=== PATIENT | female | born 1965 | race Caucasian/White ===

== ENCOUNTER 2016-09-07 20:06 | Emergency (ER) | payer OTHER ==
[~2016-09-07] VITALS: Ht 152.4 cm; Wt 68.2 kg
[~2016-09-07 20:06] MED LIST: DIVA500T35 PO; RISP3 PO
[2016-09-07] MEDS ORDERED: LORA-192 PO (20:18)
[2016-09-07] MEDS ORDERED: LITH600C PO (20:18)
[2016-09-07] MEDS ORDERED: CLON2TAB4 PO (20:18)
[2016-09-07] MEDS ORDERED: QUET400T12 PO (20:18)
[2016-09-07] MEDS ORDERED: HALOPERIDOL 5 MG TABLET PO PRN (22:15)
[2016-09-07] MEDS ORDERED: ZOLPIDEM TARTRATE 10 MG TABLET PO PRN (22:15)
[2016-09-07] MEDS: LORazepam 2 MG TABLET PO PRN (23:40)
[2016-09-08] MEDS ORDERED: DiphenhydrAMINE HCL 50 MG/ML VIAL IM ONE (02:30)
[2016-09-08] MEDS ORDERED: LORazepam 2 MG/ML VIAL IM ONE (02:30)
[2016-09-08] MEDS ORDERED: HALOPERIDOL LACTATE 5 MG/ML VIAL IM ONE (02:30)
[2016-09-08 04:57] LABS: BASOPHILS % (AUTO) 0.6 % (0.0-2.0); EOSINOPHILS % (AUTO) 3.9 % (1.0-6.0); HEMATOCRIT 40.8 % (36-46); HEMOGLOBIN 13.5 g/dL (12.0-16.0); LYMPHOCYTES # (AUTO) 2.9 K/uL (1.0-4.8); LYMPHOCYTES % (AUTO) 34.7 % (22.0-44.0); MEAN CORPUSCULAR HEMOGLOBIN 32.4 pg (26.0-34.0); MEAN CORPUSCULAR HGB CONC 33.1 G/dL (31.0-37.0); MEAN CORPUSCULAR VOLUME 98 fL (80-100); MONOCYTES # (AUTO) 0.7 K/uL (0.1-1.0); MONOCYTES % (AUTO) 8.6 % (2.0-9.0); NEUTROPHILS # (AUTO) 4.4 K/uL (1.8-7.7); NEUTROPHILS % (AUTO) 52.2 % (40.0-70.0); PLATELET COUNT (AUTO) 334 K/uL (150-450); RED BLOOD CELL COUNT(AUTO) 4.16 MIL/uL (4.00-5.20); RED CELL DISTRIBUTION WIDTH 12.9 % (11.5-14.5); WHITE BLOOD COUNT (AUTO) 8.5 K/uL (4.5-11.0)
[2016-09-08 05:12] LABS: ANION GAP 7 mmol/L (8-16); CARBON DIOXIDE 26 mmol/L (22-29); CHLORIDE 108 mmol/L (98-107); CREATININE 0.85 mg/dL (0.60-1.30); GLOMERULAR FILTR. RATE CALC > 60 mL/min (>60); POTASSIUM 4.2 mmol/L (3.5-5.1); SODIUM SERUM 141 mmol/L (136-145); UREA NITROGEN, BLOOD 9 mg/dL (7-18)
[2016-09-08 05:18] LABS: ALANINE AMINOTRANSFERASE 32 U/L (12-78); ALBUMIN 3.4 g/dL (3.4-5.0); ASPARTATE AMINOTRANSFERASE 26 U/L (15-37); BILIRUBIN,TOTAL 0.7 mg/dL (0.1-1.0); TOTAL PROTEIN, SERUM 6.6 g/dL (6.4-8.2)
[2016-09-08] MEDS: LORazepam 2 MG TABLET PO PRN (09:45)
[2016-09-08] MEDS ORDERED: LORazepam 2 MG TABLET PO ONE (11:30)
[2016-09-08 12:28] VITALS: BP 101/63
== END 2016-09-08 14:09 | disposition short-term general hospital (02) ==
LOC: EMS 20:07 → 3EC 22:34 → UNDOADMIN 22:34 → EMS 09-08 14:09
DX: F31.9 Bipolar disorder, unspecified (principal); F41.9 Anxiety disorder, unspecified; F17.210 Nicotine dependence, cigarettes, uncomplicated
CPT/HCPCS: 36415; 80053; 80178; 80307; 85025; 96372; 99285; G0480; J1200; J1630; J2060

== ENCOUNTER 2020-04-23 20:36 | Emergency (ER) | payer OTHER ==
[~2020-04-23] VITALS: Ht 162.6 cm; Wt 75.0 kg
[~2020-04-23 20:36] MED LIST changes: +CLON2TAB11 PO; -DIVA500T35 PO; +LITH600C PO; +LORA-192 PO; +QUET400T12 PO; -RISP3 PO
[2020-04-24] MEDS ORDERED: DiphenhydrAMINE HCL 50 MG/ML VIAL IM ONE (01:45)
[2020-04-24] MEDS ORDERED: LORazepam 2 MG/ML VIAL IM ONE (01:45)
[2020-04-24] MEDS ORDERED: HALOPERIDOL LACTATE 5 MG/ML VIAL IM ONE (01:45)
[2020-04-24 03:01] LABS: BASOPHILS % (AUTO) 0.6 % (0.0-2.0); EOSINOPHILS % (AUTO) 2.9 % (1.0-6.0); HEMATOCRIT 38.8 % (36-46); HEMOGLOBIN 13.5 g/dL (12.0-16.0); LYMPHOCYTES # (AUTO) 3.2 K/uL (1.0-4.8); LYMPHOCYTES % (AUTO) 37.7 % (22.0-44.0); MEAN CORPUSCULAR HEMOGLOBIN 33.5 pg (26.0-34.0); MEAN CORPUSCULAR HGB CONC 34.9 G/dL (31.0-37.0); MEAN CORPUSCULAR VOLUME 96 fL (80-100); MONOCYTES # (AUTO) 0.7 K/uL (0.1-1.0); MONOCYTES % (AUTO) 8.5 % (2.0-9.0); NEUTROPHILS # (AUTO) 4.2 K/uL (1.8-7.7); NEUTROPHILS % (AUTO) 50.3 % (40.0-70.0); PLATELET COUNT (AUTO) 422 K/uL (150-450); RED BLOOD CELL COUNT(AUTO) 4.04 MIL/uL (4.00-5.20); RED CELL DISTRIBUTION WIDTH 12.6 % (11.5-14.5)
[2020-04-24 03:06] LABS: LITHIUM 0.44 mmol/L (0.60-1.20)
[2020-04-24 03:08] LABS: ANION GAP 8 mmol/L (8-16); CALCIUM, TOTAL 9.7 mg/dL (8.8-10.5); CARBON DIOXIDE 27 mmol/L (22-29); CHLORIDE 107 mmol/L (98-107); CREATININE 0.61 mg/dL (0.60-1.30); GLOMERULAR FILTR. RATE CALC > 60 mL/min (>60); GLUCOSE,RANDOM 108 mg/dL (70-110); POTASSIUM 3.8 mmol/L (3.5-5.1); SODIUM SERUM 142 mmol/L (136-145); UREA NITROGEN, BLOOD 10 mg/dL (7-18)
[2020-04-24 03:14] LABS: ALANINE AMINOTRANSFERASE 60 U/L (12-78); ALBUMIN 3.8 g/dL (3.4-5.0); ALKALINE PHOSPHATASE 94 U/L (46-116); ASPARTATE AMINOTRANSFERASE 26 U/L (15-37); BILIRUBIN,TOTAL 0.6 mg/dL (0.1-1.0); TOTAL PROTEIN, SERUM 7.7 g/dL (6.4-8.2)
[2020-04-24 03:16] LABS: SALICYLATE < 2.8 mg/dL (2.8-20.0)
[2020-04-24 03:26] LABS: ACETAMINOPHEN < 2 mcg/mL (10-30)
[2020-04-24 04:04] LABS: COVID AG,FIA SOURCE NASOPHARYNGEAL
[2020-04-24 06:05] VITALS: BP 132/86
== END 2020-04-24 06:40 ==
LOC: EMS 20:46
DX: F31.9 Bipolar disorder, unspecified (principal); F41.9 Anxiety disorder, unspecified; Z20.828 Contact with and (suspected) exposure to other viral communicable diseases; F17.210 Nicotine dependence, cigarettes, uncomplicated; Z79.899 Other long term (current) drug therapy
CPT/HCPCS: 36415; 80053; 80178; 85025; 87426; 96372; 99285; G0480; J1200; J1630; J2060; G0481

== ENCOUNTER 2020-11-26 20:21 | Inpatient (IN) | payer OTHER ==
[~2020-11-26] VITALS: Ht 152.4 cm; Wt 84.4 kg
[2020-11-26] MEDS ORDERED: LORazepam 2 MG/ML VIAL ONE (22:39)
[2020-11-26] MEDS ORDERED: DiphenhydrAMINE HCL 50 MG/ML VIAL ONE (22:39)
[2020-11-26] MEDS ORDERED: HALOPERIDOL LACTATE 5 MG/ML VIAL ONE (22:39)
[2020-11-26] MEDS ORDERED: LORazepam 2 MG/ML VIAL IM ONE (22:45)
[2020-11-26] MEDS ORDERED: HALOPERIDOL LACTATE 5 MG/ML VIAL IM ONE (22:45)
[2020-11-26] MEDS ORDERED: DiphenhydrAMINE HCL 50 MG/ML VIAL IM ONE (22:45)
[2020-11-26 23:08] LABS: COVID AG,FIA SOURCE NASOPHARYNGEAL
[2020-11-26 23:11] LABS: BASOPHILS % (AUTO) 0.6 % (0.0-2.0); EOSINOPHILS % (AUTO) 1.2 % (1.0-6.0); HEMATOCRIT 40.7 % (36-46); HEMOGLOBIN 13.6 g/dL (12.0-16.0); LYMPHOCYTES # (AUTO) 3.4 K/uL (1.0-4.8); LYMPHOCYTES % (AUTO) 30.1 % (22.0-44.0); MEAN CORPUSCULAR HEMOGLOBIN 31.9 pg (26.0-34.0); MEAN CORPUSCULAR HGB CONC 33.4 G/dL (31.0-37.0); MEAN CORPUSCULAR VOLUME 96 fL (80-100); MONOCYTES # (AUTO) 0.9 K/uL (0.1-1.0); MONOCYTES % (AUTO) 7.7 % (2.0-9.0); NEUTROPHILS # (AUTO) 6.9 K/uL (1.8-7.7); NEUTROPHILS % (AUTO) 60.4 % (40.0-70.0); PLATELET COUNT (AUTO) 420 K/uL (150-450); RED BLOOD CELL COUNT(AUTO) 4.26 MIL/uL (4.00-5.20); RED CELL DISTRIBUTION WIDTH 13.2 % (11.5-14.5)
[2020-11-26 23:20] LABS: ANION GAP 8 mmol/L (8-16); CALCIUM, TOTAL 9.1 mg/dL (8.8-10.5); CARBON DIOXIDE 24 mmol/L (22-29); CHLORIDE 102 mmol/L (98-107); CREATININE 0.78 mg/dL (0.60-1.30); GLOMERULAR FILTR. RATE CALC > 60 mL/min (>60); GLUCOSE,RANDOM 115 mg/dL (70-110); LITHIUM 0.29 mmol/L (0.60-1.20); POTASSIUM 3.4 mmol/L (3.5-5.1); SODIUM SERUM 134 mmol/L (136-145); UREA NITROGEN, BLOOD 14 mg/dL (7-18)
[2020-11-26 23:26] LABS: ALANINE AMINOTRANSFERASE 32 U/L (12-78); ALBUMIN 3.8 g/dL (3.4-5.0); ALKALINE PHOSPHATASE 99 U/L (46-116); ASPARTATE AMINOTRANSFERASE 22 U/L (15-37); BILIRUBIN,TOTAL 0.3 mg/dL (0.1-1.0); TOTAL PROTEIN, SERUM 7.6 g/dL (6.4-8.2)
[2020-11-27] MEDS ORDERED: POTASSIUM CHLORIDE 20 MEQ ER TABLET PO ONE (00:30)
[2020-11-27] MEDS ORDERED: ACETAMINOPHEN 325 MG TABLET PO ONE (07:15)
[2020-11-27] MEDS ORDERED: HALOPERIDOL LACTATE 5 MG/ML VIAL IM ONE ×2 (07:30→19:45)
[2020-11-27] MEDS ORDERED: LORazepam 2 MG/ML VIAL IM ONE ×2 (07:30→19:45)
[2020-11-27] MEDS ORDERED: ZOLPIDEM TARTRATE 10 MG TABLET PO PRN (09:00)
[2020-11-27] MEDS: LORazepam 2 MG TABLET PO PRN (11:19)
[2020-11-27] MEDS ORDERED: DiphenhydrAMINE HCL 50 MG/ML VIAL IM ONE (19:45)
[2020-11-27] MEDS: LITHIUM CARBONATE 600 MG CAPSULE PO SCH (20:55)
[2020-11-27] MEDS: QUEtiapine FUMARATE 200 MG TABLET PO SCH (20:56)
[2020-11-28 08:11] VITALS: BP 118/71
[2020-11-28] MEDS: DIVALPROEX SODIUM 500 MG DR TABLET PO SCH ×2 (09:00→17:00)
[2020-11-28] MEDS: LITHIUM CARBONATE 300 MG CAPSULE PO SCH (09:00)
[2020-11-28] MEDS: ACETAMINOPHEN 325 MG TABLET PO PRN (13:23)
[2020-11-28] MEDS: LITHIUM CARBONATE 600 MG CAPSULE PO SCH (20:35)
[2020-11-28] MEDS: QUEtiapine FUMARATE 200 MG TABLET PO SCH (20:35)
[2020-11-28] MEDS ORDERED: HALOPERIDOL LACTATE 5 MG/ML VIAL IM ONE (21:45)
[2020-11-28] MEDS ORDERED: DiphenhydrAMINE HCL 50 MG/ML VIAL IM ONE (21:45)
[2020-11-28] MEDS ORDERED: LORazepam 2 MG/ML VIAL IM ONE (21:45)
[2020-11-29 04:55] VITALS: BP 114/95
[2020-11-29] MEDS: ACETAMINOPHEN 325 MG TABLET PO PRN ×2 (04:56→12:50)
[2020-11-29] MEDS: LITHIUM CARBONATE 300 MG CAPSULE PO SCH (09:00)
[2020-11-29] MEDS: DIVALPROEX SODIUM 500 MG DR TABLET PO SCH ×2 (09:00→16:13)
[2020-11-29 09:24] VITALS: BP 146/89
[2020-11-29] MEDS: LITHIUM CARBONATE 600 MG CAPSULE PO SCH (20:46)
[2020-11-29] MEDS: QUEtiapine FUMARATE 200 MG TABLET PO SCH (20:46)
[2020-11-30] MEDS: ACETAMINOPHEN 325 MG TABLET PO PRN ×2 (06:26→14:35)
[2020-11-30 08:13] VITALS: BP 132/84
[2020-11-30] MEDS: DIVALPROEX SODIUM 500 MG DR TABLET PO SCH ×2 (09:00→15:28)
[2020-11-30] MEDS: LITHIUM CARBONATE 300 MG CAPSULE PO SCH (09:00)
[2020-11-30] MEDS: QUEtiapine FUMARATE 200 MG TABLET PO SCH (15:28)
[2020-11-30] MEDS: LITHIUM CARBONATE 600 MG CAPSULE PO SCH (15:28)
[2020-11-30] MEDS: LORazepam 2 MG TABLET PO PRN (22:11)
[2020-12-01 02:35] VITALS: BP 138/86
[2020-12-01] MEDS: ACETAMINOPHEN 325 MG TABLET PO PRN (04:10)
[2020-12-01 04:12] VITALS: BP 145/87
[2020-12-01 08:12] VITALS: BP 153/95
[2020-12-01] MEDS: DIVALPROEX SODIUM 500 MG DR TABLET PO SCH ×2 (08:37→17:00)
[2020-12-01] MEDS: LITHIUM CARBONATE 300 MG CAPSULE PO SCH (08:37)
[2020-12-01] MEDS: IBUPROFEN 600 MG TABLET PO PRN (12:53)
[2020-12-01] MEDS: LITHIUM CARBONATE 600 MG CAPSULE PO SCH (20:25)
[2020-12-01] MEDS: QUEtiapine FUMARATE 200 MG TABLET PO SCH (20:25)
[2020-12-01] MEDS: LORazepam 2 MG TABLET PO PRN (20:25)
[2020-12-02] MEDS: IBUPROFEN 600 MG TABLET PO PRN ×3 (02:33→18:34)
[2020-12-02 08:14] VITALS: BP 154/110
[2020-12-02] MEDS: LITHIUM CARBONATE 300 MG CAPSULE PO SCH (08:24)
[2020-12-02] MEDS: DIVALPROEX SODIUM 500 MG DR TABLET PO SCH ×2 (08:24→17:00)
[2020-12-02 10:00] VITALS: BP 146/98
[2020-12-02] MEDS: LORazepam 2 MG TABLET PO PRN ×3 (13:03→23:17)
[2020-12-02] MEDS: LITHIUM CARBONATE 600 MG CAPSULE PO SCH (20:50)
[2020-12-02] MEDS: QUEtiapine FUMARATE 200 MG TABLET PO SCH (20:50)
[2020-12-02] MEDS ORDERED: CloNIDine HCL 0.1 MG TABLET PO PRN (21:45)
[2020-12-02] MEDS ORDERED: MAG HYDROX/AL HYDROX/SIMETH ES 30 ML SUSPENSION UDCUP PO PRN (21:45)
[2020-12-02] MEDS ORDERED: BACITRACIN 28 GM OINTMENT TP PRN (21:45)
[2020-12-02] MEDS ORDERED: ALBUTEROL SULFATE HFA 90 MCG/PUFF 8 GM INHALER IH PRN (21:45)
[2020-12-02] MEDS ORDERED: LOPERAMIDE HCL 2 MG CAPSULE PO PRN (21:45)
[2020-12-02] MEDS ORDERED: PETROLATUM,WHITE 28 GM JELLY TP PRN (21:45)
[2020-12-02] MEDS ORDERED: MAGNESIUM HYDROXIDE SUSPENSION 30 ML UDCUP PO PRN (21:45)
[2020-12-02] MEDS ORDERED: BENZOCAINE/MENTHOL LOZENGE PO PRN (21:45)
[2020-12-02] MEDS ORDERED: ONDANSETRON HCL 4 MG TABLET PO PRN (21:45)
[2020-12-02] MEDS: ACETAMINOPHEN 325 MG TABLET PO PRN (23:04)
[2020-12-03] MEDS ORDERED: HALOPERIDOL LACTATE 5 MG/ML VIAL IM ONE (01:30)
[2020-12-03] MEDS ORDERED: DiphenhydrAMINE HCL 50 MG/ML VIAL IM ONE (01:30)
[2020-12-03] MEDS ORDERED: LORazepam 2 MG/ML VIAL IM ONE (01:30)
[2020-12-03] MEDS ORDERED: TraZODone HCL 100 MG TABLET PO PRN (03:00)
[2020-12-03 04:30] VITALS: BP 151/93
[2020-12-03] MEDS: IBUPROFEN 600 MG TABLET PO PRN ×2 (06:42→17:36)
[2020-12-03 08:11] VITALS: BP 156/92
[2020-12-03] MEDS: DOCUSATE SODIUM 100 MG CAPSULE PO SCH (09:00)
[2020-12-03] MEDS: DIVALPROEX SODIUM 500 MG DR TABLET PO SCH ×3 (09:00→15:54)
[2020-12-03] MEDS: OMEPRAZOLE 20 MG CAPSULE PO SCH (09:00)
[2020-12-03] MEDS: LITHIUM CARBONATE 300 MG CAPSULE PO SCH (09:00)
[2020-12-03] MEDS: LITHIUM CARBONATE 600 MG CAPSULE PO SCH (15:55)
[2020-12-03] MEDS: QUEtiapine FUMARATE 200 MG TABLET PO SCH (15:56)
[2020-12-03 18:00] VITALS: BP 133/70
[2020-12-03] MEDS: ACETAMINOPHEN 325 MG TABLET PO PRN (21:51)
[2020-12-04 01:21] VITALS: BP 156/89
[2020-12-04] MEDS: IBUPROFEN 600 MG TABLET PO PRN (01:24)
[2020-12-04 02:24] VITALS: BP 135/78
[2020-12-04] MEDS ORDERED: LORazepam 2 MG/ML VIAL IM ONE (05:30)
[2020-12-04] MEDS ORDERED: DiphenhydrAMINE HCL 50 MG/ML VIAL IM ONE (05:30)
[2020-12-04] MEDS ORDERED: HALOPERIDOL LACTATE 5 MG/ML VIAL IM ONE (05:30)
[2020-12-04] MEDS: DIVALPROEX SODIUM 500 MG DR TABLET PO SCH ×2 (09:00→17:21)
[2020-12-04] MEDS: OMEPRAZOLE 20 MG CAPSULE PO SCH (09:00)
[2020-12-04] MEDS: LITHIUM CARBONATE 300 MG CAPSULE PO SCH (09:00)
[2020-12-04] MEDS: DOCUSATE SODIUM 100 MG CAPSULE PO SCH (09:00)
[2020-12-04 13:40] VITALS: BP 138/76
[2020-12-04] MEDS ORDERED: HALOPERIDOL LACTATE 5 MG/ML VIAL IM PRN (16:30)
[2020-12-04 17:56] VITALS: BP 143/91
[2020-12-04] MEDS: QUEtiapine FUMARATE 200 MG TABLET PO SCH (20:37)
[2020-12-04] MEDS: LITHIUM CARBONATE 600 MG CAPSULE PO SCH (20:37)
[2020-12-04] MEDS: LORazepam 2 MG TABLET PO PRN (20:41)
[2020-12-05 06:59] VITALS: BP 141/86
[2020-12-05] MEDS: IBUPROFEN 600 MG TABLET PO PRN ×2 (06:59→16:32)
[2020-12-05] MEDS: ACETAMINOPHEN 325 MG TABLET PO PRN (08:17)
[2020-12-05] MEDS: OMEPRAZOLE 20 MG CAPSULE PO SCH (09:00)
[2020-12-05] MEDS: DOCUSATE SODIUM 100 MG CAPSULE PO SCH (09:00)
[2020-12-05] MEDS: DIVALPROEX SODIUM 500 MG DR TABLET PO SCH ×3 (09:38→17:15)
[2020-12-05] MEDS: LITHIUM CARBONATE 300 MG CAPSULE PO SCH (09:38)
[2020-12-05] MEDS: QUEtiapine FUMARATE 200 MG TABLET PO SCH (20:14)
[2020-12-05] MEDS: LITHIUM CARBONATE 600 MG CAPSULE PO SCH (20:15)
[2020-12-06 01:09] VITALS: BP 145/90
[2020-12-06] MEDS: IBUPROFEN 600 MG TABLET PO PRN ×2 (04:42→13:05)
[2020-12-06 08:11] VITALS: BP 130/81
[2020-12-06] MEDS: DIVALPROEX SODIUM 500 MG DR TABLET PO SCH ×3 (08:18→19:15)
[2020-12-06] MEDS: LITHIUM CARBONATE 300 MG CAPSULE PO SCH (08:18)
[2020-12-06] MEDS: DOCUSATE SODIUM 100 MG CAPSULE PO SCH (08:22)
[2020-12-06] MEDS: OMEPRAZOLE 20 MG CAPSULE PO SCH ×2 (08:22→09:30)
[2020-12-06] MEDS: MULTIVITAMINS, THERAPEUTIC TABLET PO SCH (08:22)
[2020-12-06] MEDS: LORazepam 2 MG TABLET PO PRN (16:16)
[2020-12-06 16:19] VITALS: BP 138/90
[2020-12-06] MEDS: QUEtiapine FUMARATE 200 MG TABLET PO SCH (20:21)
[2020-12-06] MEDS: LITHIUM CARBONATE 600 MG CAPSULE PO SCH (20:21)
[2020-12-06] MEDS: HALOPERIDOL 5 MG TABLET PO PRN (20:22)
[2020-12-07 05:48] VITALS: BP 130/85
[2020-12-07] MEDS: IBUPROFEN 600 MG TABLET PO PRN (05:48)
[2020-12-07 08:28] VITALS: BP 131/83
[2020-12-07] MEDS: DOCUSATE SODIUM 100 MG CAPSULE PO SCH (09:00)
[2020-12-07] MEDS: OMEPRAZOLE 20 MG CAPSULE PO SCH (09:00)
[2020-12-07] MEDS: MULTIVITAMINS, THERAPEUTIC TABLET PO SCH (09:00)
[2020-12-07] MEDS: DIVALPROEX SODIUM 500 MG DR TABLET PO SCH ×2 (09:43→15:51)
[2020-12-07] MEDS: LITHIUM CARBONATE 300 MG CAPSULE PO SCH (09:43)
[2020-12-07 16:08] VITALS: BP 102/60
[2020-12-07] MEDS: LITHIUM CARBONATE 600 MG CAPSULE PO SCH (20:01)
[2020-12-07] MEDS: QUEtiapine FUMARATE 200 MG TABLET PO SCH (20:01)
[2020-12-07] MEDS: HALOPERIDOL 5 MG TABLET PO PRN ×2 (20:01→21:04)
[2020-12-07] MEDS: LORazepam 2 MG TABLET PO PRN (20:05)
[2020-12-08] MEDS: IBUPROFEN 600 MG TABLET PO PRN (05:57)
[2020-12-08] MEDS: DIVALPROEX SODIUM 500 MG DR TABLET PO SCH ×2 (08:02→17:00)
[2020-12-08] MEDS: LORazepam 2 MG TABLET PO PRN ×2 (08:02→20:39)
[2020-12-08] MEDS: LITHIUM CARBONATE 300 MG CAPSULE PO SCH (08:02)
[2020-12-08] MEDS: HALOPERIDOL 5 MG TABLET PO PRN (08:03)
[2020-12-08 08:06] VITALS: BP 130/86
[2020-12-08] MEDS: DOCUSATE SODIUM 100 MG CAPSULE PO SCH (09:00)
[2020-12-08] MEDS: MULTIVITAMINS, THERAPEUTIC TABLET PO SCH (09:00)
[2020-12-08] MEDS: OMEPRAZOLE 20 MG CAPSULE PO SCH (09:00)
[2020-12-08 16:08] VITALS: BP 140/69
[2020-12-08] MEDS ORDERED: HALOPERIDOL LACTATE 5 MG/ML VIAL IM PRN (19:00)
[2020-12-08] MEDS: QUEtiapine FUMARATE 200 MG TABLET PO SCH (20:39)
[2020-12-08] MEDS: LITHIUM CARBONATE 600 MG CAPSULE PO SCH (20:39)
[2020-12-09 00:21] VITALS: BP 140/85
[2020-12-09] MEDS: IBUPROFEN 600 MG TABLET PO PRN ×2 (01:55→18:43)
[2020-12-09] MEDS: DOCUSATE SODIUM 100 MG CAPSULE PO SCH (09:00)
[2020-12-09] MEDS: OMEPRAZOLE 20 MG CAPSULE PO SCH (09:00)
[2020-12-09] MEDS: LORazepam 2 MG TABLET PO PRN ×2 (09:00→21:15)
[2020-12-09] MEDS: HALOPERIDOL 5 MG TABLET PO PRN ×2 (09:00→21:15)
[2020-12-09] MEDS: DIVALPROEX SODIUM 500 MG DR TABLET PO SCH ×2 (09:00→18:14)
[2020-12-09] MEDS: LITHIUM CARBONATE 300 MG CAPSULE PO SCH (09:00)
[2020-12-09] MEDS: MULTIVITAMINS, THERAPEUTIC TABLET PO SCH (09:00)
[2020-12-09 16:06] VITALS: BP 140/73
[2020-12-09 18:43] VITALS: BP 150/80
[2020-12-09] MEDS: LITHIUM CARBONATE 600 MG CAPSULE PO SCH (21:15)
[2020-12-09] MEDS: QUEtiapine FUMARATE 200 MG TABLET PO SCH (21:15)
[2020-12-10] MEDS: ACETAMINOPHEN 325 MG TABLET PO PRN (00:04)
[2020-12-10 02:05] VITALS: BP 135/71
[2020-12-10] MEDS: IBUPROFEN 600 MG TABLET PO PRN ×2 (02:57→17:39)
[2020-12-10 08:03] VITALS: BP 147/88
[2020-12-10] MEDS: DOCUSATE SODIUM 100 MG CAPSULE PO SCH (09:00)
[2020-12-10] MEDS: MULTIVITAMINS, THERAPEUTIC TABLET PO SCH (09:04)
[2020-12-10] MEDS: LITHIUM CARBONATE 300 MG CAPSULE PO SCH (09:04)
[2020-12-10] MEDS: OMEPRAZOLE 20 MG CAPSULE PO SCH (09:04)
[2020-12-10] MEDS: DIVALPROEX SODIUM 500 MG DR TABLET PO SCH ×2 (09:04→16:20)
[2020-12-10 16:02] VITALS: BP 137/81
[2020-12-10 17:39] VITALS: BP 150/90
[2020-12-10] MEDS: HALOPERIDOL 5 MG TABLET PO PRN (20:23)
[2020-12-10] MEDS: LITHIUM CARBONATE 600 MG CAPSULE PO SCH (20:23)
[2020-12-10] MEDS: LORazepam 2 MG TABLET PO PRN (20:23)
[2020-12-10] MEDS: QUEtiapine FUMARATE 200 MG TABLET PO SCH (20:23)
[2020-12-11 01:38] VITALS: BP 134/86
[2020-12-11] MEDS: IBUPROFEN 600 MG TABLET PO PRN ×2 (03:00→23:42)
[2020-12-11] MEDS: LITHIUM CARBONATE 300 MG CAPSULE PO SCH (08:06)
[2020-12-11] MEDS: DIVALPROEX SODIUM 500 MG DR TABLET PO SCH ×2 (08:06→16:36)
[2020-12-11] MEDS: DOCUSATE SODIUM 100 MG CAPSULE PO SCH (08:11)
[2020-12-11] MEDS: MULTIVITAMINS, THERAPEUTIC TABLET PO SCH (08:11)
[2020-12-11] MEDS: OMEPRAZOLE 20 MG CAPSULE PO SCH (08:12)
[2020-12-11 08:25] VITALS: BP 142/106
[2020-12-11] MEDS: LORazepam 2 MG TABLET PO PRN (20:01)
[2020-12-11] MEDS: LITHIUM CARBONATE 600 MG CAPSULE PO SCH (20:02)
[2020-12-11] MEDS: QUEtiapine FUMARATE 200 MG TABLET PO SCH (20:03)
[2020-12-11 23:37] VITALS: BP 138/86
[2020-12-12 01:54] VITALS: BP 140/88
[2020-12-12 08:08] VITALS: BP 144/94
[2020-12-12] MEDS: OMEPRAZOLE 20 MG CAPSULE PO SCH (08:36)
[2020-12-12] MEDS: LITHIUM CARBONATE 300 MG CAPSULE PO SCH (08:36)
[2020-12-12] MEDS: DIVALPROEX SODIUM 500 MG DR TABLET PO SCH ×2 (08:36→16:13)
[2020-12-12] MEDS: DOCUSATE SODIUM 100 MG CAPSULE PO SCH (09:00)
[2020-12-12] MEDS: MULTIVITAMINS, THERAPEUTIC TABLET PO SCH (09:00)
[2020-12-12] MEDS: LORazepam 2 MG TABLET PO PRN ×2 (09:58→20:19)
[2020-12-12 16:07] VITALS: BP 132/75
[2020-12-12] MEDS: QUEtiapine FUMARATE 200 MG TABLET PO SCH (20:19)
[2020-12-12] MEDS: LITHIUM CARBONATE 600 MG CAPSULE PO SCH (20:19)
[2020-12-13 06:16] VITALS: BP 118/88
[2020-12-13] MEDS: ACETAMINOPHEN 325 MG TABLET PO PRN (06:25)
[2020-12-13 08:01] VITALS: BP 131/82
[2020-12-13] MEDS: IBUPROFEN 600 MG TABLET PO PRN (08:34)
[2020-12-13] MEDS: LITHIUM CARBONATE 300 MG CAPSULE PO SCH (08:34)
[2020-12-13] MEDS: DIVALPROEX SODIUM 500 MG DR TABLET PO SCH ×2 (08:34→16:25)
[2020-12-13] MEDS: OMEPRAZOLE 20 MG CAPSULE PO SCH (08:34)
[2020-12-13] MEDS: LORazepam 2 MG TABLET PO PRN ×2 (08:34→20:28)
[2020-12-13] MEDS: MULTIVITAMINS, THERAPEUTIC TABLET PO SCH (08:34)
[2020-12-13] MEDS: DOCUSATE SODIUM 100 MG CAPSULE PO SCH (08:34)
[2020-12-13 16:04] VITALS: BP 123/78
[2020-12-13] MEDS: LITHIUM CARBONATE 600 MG CAPSULE PO SCH (20:05)
[2020-12-13] MEDS: QUEtiapine FUMARATE 200 MG TABLET PO SCH (20:05)
[2020-12-14] MEDS: IBUPROFEN 600 MG TABLET PO PRN (02:16)
[2020-12-14 02:17] VITALS: BP 145/90
[2020-12-14 06:30] VITALS: BP 142/86
[2020-12-14] MEDS: ACETAMINOPHEN 325 MG TABLET PO PRN (07:01)
[2020-12-14 08:06] VITALS: BP 138/97
[2020-12-14] MEDS: OMEPRAZOLE 20 MG CAPSULE PO SCH (08:16)
[2020-12-14] MEDS: LITHIUM CARBONATE 300 MG CAPSULE PO SCH (08:16)
[2020-12-14] MEDS: DOCUSATE SODIUM 100 MG CAPSULE PO SCH (08:16)
[2020-12-14] MEDS: DIVALPROEX SODIUM 500 MG DR TABLET PO SCH (08:16)
[2020-12-14] MEDS: MULTIVITAMINS, THERAPEUTIC TABLET PO SCH (08:16)
[2020-12-14] MEDS: LORazepam 2 MG TABLET PO PRN (08:16)
[2020-12-14 10:22] VITALS: BP 136/88
== END 2020-12-14 12:45 | disposition home or self-care (01) | DRG 885 ==
LOC: EMS 20:24 → B2S 11-27 09:41 → EMS 11-27 10:26 → B2S 11-27 12:26 → B3A 11-27 20:00
PROVIDERS: ADMIT Psychiatry & Neurology Psychiatry; ATTEND Psychiatry & Neurology Psychiatry
DX: F25.9 Schizoaffective disorder, unspecified (principal); I10 Essential (primary) hypertension; Z20.822 Contact with and (suspected) exposure to COVID-19; Z87.891 Personal history of nicotine dependence; Z91.14 Patient's other noncompliance with medication regimen
CPT/HCPCS: 80053; 80178; 85025; 99291; G0480; J1200; J1630; J2060

== ENCOUNTER 2020-12-23 16:24 | Emergency (ER) | payer OTHER ==
[~2020-12-23] VITALS: Ht 165.1 cm; Wt 100.0 kg
[2020-12-23] MEDS ORDERED: DiphenhydrAMINE HCL 50 MG/ML VIAL IM ONE (17:00)
[2020-12-23] MEDS ORDERED: LORazepam 2 MG/ML VIAL IM ONE (17:00)
[2020-12-23] MEDS ORDERED: HALOPERIDOL LACTATE 5 MG/ML VIAL IM ONE (17:00)
[2020-12-23 17:59] LABS: COVID AG,FIA SOURCE NASOPHARYNGEAL
[2020-12-23 18:02] LABS: BASOPHILS % (AUTO) 0.5 % (0.0-2.0); HEMATOCRIT 34.1 % (36-46); HEMOGLOBIN 11.6 g/dL (12.0-16.0); LYMPHOCYTES # (AUTO) 2.4 K/uL (1.0-4.8); LYMPHOCYTES % (AUTO) 22.8 % (22.0-44.0); MEAN CORPUSCULAR HEMOGLOBIN 32.2 pg (26.0-34.0); MEAN CORPUSCULAR HGB CONC 34.1 G/dL (31.0-37.0); MEAN CORPUSCULAR VOLUME 94 fL (80-100); MONOCYTES # (AUTO) 0.8 K/uL (0.1-1.0); MONOCYTES % (AUTO) 7.2 % (2.0-9.0); NEUTROPHILS # (AUTO) 7.2 K/uL (1.8-7.7); NEUTROPHILS % (AUTO) 67.5 % (40.0-70.0); PLATELET COUNT (AUTO) 491 K/uL (150-450); RED BLOOD CELL COUNT(AUTO) 3.61 MIL/uL (4.00-5.20)
[2020-12-23 18:14] LABS: ANION GAP 6 mmol/L (8-16); CARBON DIOXIDE 27 mmol/L (22-29); CHLORIDE 105 mmol/L (98-107); CREATININE 0.81 mg/dL (0.60-1.30); GLOMERULAR FILTR. RATE CALC > 60 mL/min (>60); GLUCOSE,RANDOM 124 mg/dL (70-110); LITHIUM 0.71 mmol/L (0.60-1.20); POTASSIUM 3.5 mmol/L (3.5-5.1); SODIUM SERUM 138 mmol/L (136-145); UREA NITROGEN, BLOOD 11 mg/dL (7-18)
[2020-12-23 18:19] LABS: ALANINE AMINOTRANSFERASE 25 U/L (12-78); ALKALINE PHOSPHATASE 104 U/L (46-116); ASPARTATE AMINOTRANSFERASE 14 U/L (15-37); BILIRUBIN,TOTAL 0.2 mg/dL (0.1-1.0); TOTAL PROTEIN, SERUM 7.6 g/dL (6.4-8.2)
[2020-12-24 04:54] VITALS: BP 161/113
[2020-12-24] MEDS ORDERED: LORazepam 2 MG TABLET PO ONE (05:00)
== END 2020-12-24 05:26 | disposition short-term general hospital (02) ==
LOC: EMS 16:24
DX: F31.9 Bipolar disorder, unspecified (principal); L97.219 Non-pressure chronic ulcer of right calf with unspecified severity; F41.9 Anxiety disorder, unspecified; F20.9 Schizophrenia, unspecified; F17.210 Nicotine dependence, cigarettes, uncomplicated; Z20.822 Contact with and (suspected) exposure to COVID-19; Z79.899 Other long term (current) drug therapy
CPT/HCPCS: 80053; 80178; 85025; 87426; 96372; 99285; G0480; J1200; J1630; J2060

== ENCOUNTER 2022-03-25 13:13 | Emergency (ER) | payer OTHER, MEDICAID ==
[~2022-03-25] VITALS: Ht 157.5 cm; Wt 90.9 kg
[~2022-03-25 13:13] MED LIST changes: -QUET400T12 PO; +QUET400T13 PO
[2022-03-25] MEDS ORDERED: LORazepam 1 MG TABLET PO ONE (15:15)
[2022-03-25] MEDS ORDERED: DiphenhydrAMINE HCL 25 MG CAPSULE PO ONE (15:15)
[2022-03-25] MEDS ORDERED: HALOPERIDOL 5 MG TABLET PO ONE (15:15)
[2022-03-25 16:46] LABS: BASOPHILS % (AUTO) 0.9 % (0.0-2.0); EOSINOPHILS % (AUTO) 5.1 % (1.0-6.0); HEMATOCRIT 40.5 % (36-46); HEMOGLOBIN 13.6 g/dL (12.0-16.0); LYMPHOCYTES # (AUTO) 2.5 K/uL (1.0-4.8); MEAN CORPUSCULAR HEMOGLOBIN 32.3 pg (26.0-34.0); MEAN CORPUSCULAR HGB CONC 33.6 G/dL (31.0-37.0); MEAN CORPUSCULAR VOLUME 96 fL (80-100); MONOCYTES # (AUTO) 0.4 K/uL (0.1-1.0); NEUTROPHILS # (AUTO) 2.4 K/uL (1.8-7.7); PLATELET COUNT (AUTO) 365 K/uL (150-450)
[2022-03-25 16:59] LABS: ANION GAP 8 mmol/L (8-16); CALCIUM, TOTAL 9.1 mg/dL (8.8-10.5); CARBON DIOXIDE 25 mmol/L (22-29); CHLORIDE 106 mmol/L (98-107); CREATININE 0.71 mg/dL (0.60-1.30); GLUCOSE,RANDOM 115 mg/dL (70-110); POTASSIUM 3.7 mmol/L (3.5-5.1); SODIUM SERUM 139 mmol/L (136-145); UREA NITROGEN, BLOOD 14 mg/dL (7-18)
[2022-03-25 17:00] LABS: GLOMERULAR FILTR. RATE CALC > 60 mL/min (>60)
[2022-03-25 17:02] LABS: COVID AG,FIA SOURCE NASAL SWAB
[2022-03-25 17:05] LABS: ALANINE AMINOTRANSFERASE 37 U/L (12-78); ALBUMIN 3.8 g/dL (3.4-5.0); ALKALINE PHOSPHATASE 109 U/L (46-116); ASPARTATE AMINOTRANSFERASE 22 U/L (15-37); BILIRUBIN,TOTAL 0.3 mg/dL (0.1-1.0); TOTAL PROTEIN, SERUM 7.3 g/dL (6.4-8.2)
[2022-03-25 21:59] VITALS: BP 136/75
== END 2022-03-26 01:04 | disposition short-term general hospital (02) ==
LOC: EMS 13:21
DX: F91.8 Other conduct disorders (principal); F41.9 Anxiety disorder, unspecified; F31.9 Bipolar disorder, unspecified; F20.9 Schizophrenia, unspecified; F17.210 Nicotine dependence, cigarettes, uncomplicated; Z98.890 Other specified postprocedural states; Z20.822 Contact with and (suspected) exposure to COVID-19
CPT/HCPCS: 99285; 87426; 80053; 85025; 36415; G0480